=== PATIENT | female | born 1975 | race Two or more races ===

== ENCOUNTER 2019-04-27 11:56 | Outpatient (CLI) | payer OTHER | END 2019-04-27 12:06 | disposition home or self-care (01) | LOC: LAB 11:56 | DX: D50.0 Iron deficiency anemia secondary to blood loss (chronic) (principal); N93.8 Other specified abnormal uterine and vaginal bleeding; I10 Essential (primary) hypertension; D50.8 Other iron deficiency anemias; D55.0 Anemia due to glucose-6-phosphate dehydrogenase [G6PD] deficiency; D51.8 Other vitamin B12 deficiency anemias; D51.1 Vitamin B12 deficiency anemia due to selective vitamin B12 malabsorption with proteinuria; D51.0 Vitamin B12 deficiency anemia due to intrinsic factor deficiency ==

== ENCOUNTER 2019-05-22 13:45 | Outpatient (CLI) | payer OTHER | END 2019-05-22 14:00 | disposition home or self-care (01) | LOC: LAB 13:45 | DX: D50.0 Iron deficiency anemia secondary to blood loss (chronic) (principal); N93.8 Other specified abnormal uterine and vaginal bleeding; I10 Essential (primary) hypertension; E03.8 Other specified hypothyroidism; D68.8 Other specified coagulation defects; R97.0 Elevated carcinoembryonic antigen [CEA]; R97.8 Other abnormal tumor markers; D59.8 Other acquired hemolytic anemias; R97.1 Elevated cancer antigen 125 [CA 125] ==

== ENCOUNTER → 2019-08-31 11:53 | Outpatient (CLI) | payer OTHER | END | disposition home or self-care (01) | LOC: LAB 11:53 | DX: D50.8 Other iron deficiency anemias (principal); I10 Essential (primary) hypertension; D50.0 Iron deficiency anemia secondary to blood loss (chronic); N93.8 Other specified abnormal uterine and vaginal bleeding; D55.0 Anemia due to glucose-6-phosphate dehydrogenase [G6PD] deficiency; D51.0 Vitamin B12 deficiency anemia due to intrinsic factor deficiency ==